=== PATIENT | female | born 1940 | race Caucasian/White ===

== ENCOUNTER 2018-07-29 09:14 | Inpatient (IN) ==
[2018-07-29 11:12] LABS: Basophils # 0.1 10*3/uL (0.0-0.2); Basophils % 0.7 % (0.0-0.8); Eosinophils # 0.1 10*3/uL (0.0-0.87); Hematocrit 45.8 VOL% (35.7-47.0); Hemoglobin 15.7 GM/DL (12.0-16.0); Immature Granulocytes % 0.8 %; Immature Granulocytes Absolute 0.09 #; Lymphocytes # 1.8 10*3/uL (1.4-4.0); Lymphocytes % 15.6 % (21.3-54.2); Mean Corpuscular HGB Conc 34.3 GM/DL (32-36); Mean Corpuscular Hemoglobin 31 PG (27-34); Mean Corpuscular Volume 89.5 FL (87-102); Mean Platelet Volume 10.4 FL (9.6-12.0); Monocytes # 0.8 10*3/uL (0.11-0.8); Monocytes % 6.4 % (1.7-12.7); Neutrophils # 8.8 10*3/uL (1.4-7.4); Neutrophils % 75.5 % (38.7-73.9); Platelet Count 249 T/CUMM (130-400); Red Blood Count 5.12 MC/CUMM (3.8-5.5); Red Cell Distribution Width 12.9 % (9.3-17.3); White Blood Count 11.7 T/CUMM (4-12)
[2018-07-29 11:30] LABS: Lactic Acid 3.3 MMOL/L (0.4-2.0)
[2018-07-29 11:40] LABS: Alanine Aminotransferase 24 U/L (13-56); Albumin 3.9 G/DL (3.4-5.0); Alkaline Phosphatase 143 U/L (45-117); Amylase 39 U/L (25-115); Aspartate Amino Transferase 16 U/L (0-37); Blood Urea Nitrogen 23 MG/DL (7-18); Calcium 9.5 MG/DL (8.5-10.1); Glucose 141 MG/DL (74-106); Osmolality,Calculated 284.4 MOS/KG (273-304); Potassium 3.8 MMOL/L (3.5-5.1); Sodium 140 MMOL/L (136-145); Total Protein 7.5 G/DL (6.4-8.3)
[2018-07-29 11:44] LABS: Bacteria,Urine Occasional /HPF (Few); Bilirubin,Urine Negative (Negative); Blood, Urine Large mg/dL (Negative); Glucose,Urine (UA) Negative (Negative); Ketones,Urine Negative (Negative); Mucus,Urine Few /LPF (Occasional); Nitrite,Urine Positive (Negative); Protein,Urine 100 MG/DL; RBC,Urine 83 /HPF (0-4); Squamous Epithelial Cell,Urine Occasional /HPF (0-10); Urine Specific Gravity 1.023 (1.001-1.035); WBC,Urine 2 /HPF (0-6)
[2018-07-29 11:46] LABS: Apearance,Urine Slightly Hazy (Clear); Urine Color Orange (Yellow)
[2018-07-29 15:04] LABS: Risk Ratio 3.28; VLDL CHOLESTEROL 42.2 MG/DL
[2018-07-29 15:43] LABS: Troponin I < 0.015 NG/ML (0.00-0.045)
[2018-07-30 05:00] LABS: Basophils % 0.2 % (0.0-0.8); Eosinophils # 0.1 10*3/uL (0.0-0.87); Eosinophils % 0.4 % (0.00-10.9); Hematocrit 35.3 VOL% (35.7-47.0); Immature Granulocytes % 0.5 %; Immature Granulocytes Absolute 0.06 #; Lymphocytes # 1.6 10*3/uL (1.4-4.0); Lymphocytes % 13.1 % (21.3-54.2); Mean Corpuscular HGB Conc 33.4 GM/DL (32-36); Mean Corpuscular Hemoglobin 30 PG (27-34); Mean Corpuscular Volume 88.5 FL (87-102); Mean Platelet Volume 10.7 FL (9.6-12.0); Neutrophils # 9.4 10*3/uL (1.4-7.4); Neutrophils % 77.8 % (38.7-73.9); Red Cell Distribution Width 13.1 % (9.3-17.3); White Blood Count 12.1 T/CUMM (4-12)
[2018-07-30 05:27] LABS: Hemoglobin 11.8 GM/DL (12.0-16.0); Red Blood Count 3.99 MC/CUMM (3.8-5.5)
[2018-07-30 05:28] LABS: Platelet Count 193 T/CUMM (130-400)
[2018-07-30 05:32] LABS: Albumin 2.8 G/DL (3.4-5.0); Bilirubin,Total 0.8 MG/DL (0.2-1.0); Osmolality,Calculated 289.6 MOS/KG (273-304); Total Protein 5.3 G/DL (6.4-8.3)
[2018-07-31 05:57] LABS: Basophils # 0.1 10*3/uL (0.0-0.2); Basophils % 0.7 % (0.0-0.8); Eosinophils # 0.2 10*3/uL (0.0-0.87); Eosinophils % 2.7 % (0.00-10.9); Hemoglobin 11.6 GM/DL (12.0-16.0); Immature Granulocytes % 0.5 %; Immature Granulocytes Absolute 0.04 #; Lymphocytes % 24.4 % (21.3-54.2); Mean Corpuscular HGB Conc 33.1 GM/DL (32-36); Mean Corpuscular Hemoglobin 30 PG (27-34); Mean Corpuscular Volume 90.4 FL (87-102); Mean Platelet Volume 10.9 FL (9.6-12.0); Monocytes # 0.6 10*3/uL (0.11-0.8); Monocytes % 7.3 % (1.7-12.7); Neutrophils # 5.3 10*3/uL (1.4-7.4); Neutrophils % 64.4 % (38.7-73.9); Platelet Count 162 T/CUMM (130-400); Red Blood Count 3.87 MC/CUMM (3.8-5.5); Red Cell Distribution Width 13.2 % (9.3-17.3); White Blood Count 8.2 T/CUMM (4-12)
[2018-07-31 06:54] LABS: Albumin 2.6 G/DL (3.4-5.0); Bilirubin,Total 0.5 MG/DL (0.2-1.0); Osmolality,Calculated 290.4 MOS/KG (273-304); Potassium 3.5 MMOL/L (3.5-5.1); Total Protein 5.4 G/DL (6.4-8.3)
[2018-07-31 16:37] VITALS: BP 117/64
== END 2018-07-31 18:17 | disposition home or self-care (01) | DRG 392 ==
LOC: N.ED 09:14 → N.EDINP 14:10 → SUATTDRO 14:10 → N.3E 16:24
PROVIDERS: ADMIT Internal Medicine; ATTEND Internal Medicine

== ENCOUNTER 2020-06-28 11:29 | Inpatient (IN) ==
[2020-06-28] MEDS ORDERED: SODIUM CHLORIDE 0.9% 1,000 ML IV STA (12:34)
[2020-06-28] MEDS ORDERED: ONDANSETRON 4 MG/2 ML VIAL ONE (13:10)
[2020-06-28 13:34] LABS: Basophils % 0.4 % (0.0-0.8); Hematocrit 41.7 VOL% (35.7-47.0); Hemoglobin 14.4 GM/DL (12.0-16.0); Immature Granulocytes % 0.4 %; Immature Granulocytes Absolute 0.02 #; Lymphocytes # 0.7 10*3/uL (1.4-4.0); Lymphocytes % 12.9 % (21.3-54.2); Mean Corpuscular HGB Conc 34.5 GM/DL (32-36); Mean Corpuscular Volume 86.2 FL (87-102); Mean Platelet Volume 10.3 FL (9.6-12.0); Monocytes % 11.2 % (1.7-12.7); Neutrophils % 75.1 % (38.7-73.9); Platelet Count 141 T/CUMM (130-400); Red Blood Count 4.84 MC/CUMM (3.8-5.5); Red Cell Distribution Width 12.6 % (9.3-17.3); White Blood Count 5.3 T/CUMM (4-12)
[2020-06-28 13:46] LABS: PT Patient Result 10.9 SECS (9.8-11.9)
[2020-06-28 13:56] LABS: Albumin 3.4 G/DL (3.4-5.0); Bilirubin,Total 0.5 MG/DL (0.2-1.0); Calcium 8.4 MG/DL (8.5-10.1); Ferritin 349.4 ng/ml (8-252); Osmolality,Calculated 278.5 MOS/KG (273-304); Total Protein 7.1 G/DL (6.4-8.3)
[2020-06-28] MEDS ORDERED: GLUCAGON 1 MG VIAL IM PRN (17:08)
[2020-06-28] MEDS ORDERED: DEXTROSE 50% 25 GM/50 ML VIAL IV PRN (17:08)
[2020-06-29] MEDS: ENOXAPARIN 40 MG/0.4 ML SYRINGE SUBCUT SCH ×2 (00:08→19:30)
[2020-06-29 04:27] LABS: Basophils % 0.4 % (0.0-0.8); Hematocrit 35.4 VOL% (35.7-47.0); Hemoglobin 12.1 GM/DL (12.0-16.0); Immature Granulocytes % 0.2 %; Immature Granulocytes Absolute 0.01 #; Lymphocytes # 0.7 10*3/uL (1.4-4.0); Lymphocytes % 14.1 % (21.3-54.2); Mean Corpuscular HGB Conc 34.2 GM/DL (32-36); Mean Corpuscular Volume 85.7 FL (87-102); Mean Platelet Volume 10.3 FL (9.6-12.0); Neutrophils % 74.3 % (38.7-73.9); Platelet Count 133 T/CUMM (130-400); Red Blood Count 4.13 MC/CUMM (3.8-5.5); Red Cell Distribution Width 12.6 % (9.3-17.3); White Blood Count 4.7 T/CUMM (4-12)
[2020-06-29 04:38] LABS: Osmolality,Calculated 278.4 MOS/KG (273-304)
[2020-06-29 05:09] LABS: Hypochromasia 1+; Microcytosis 1+
[2020-06-29 05:10] LABS: Platelet Estimate Adequate
[2020-06-29] MEDS: ACETAMINOPHEN 500 MG TABLET PO PRN (05:32)
[2020-06-29] MEDS ORDERED: MAGNESIUM SULF RIDER 4 GM in PREMIX 1 EACH IV PRN (07:38)
[2020-06-29] MEDS ORDERED: MAGNESIUM SULF RIDER 2 GM in PREMIX 1 EACH IV PRN (07:38)
[2020-06-29] MEDS: PANTOPRAZOLE 40 MG TABLET PO SCH (09:32)
[2020-06-29] MEDS: ASPIRIN 325 MG TABLET PO SCH (09:32)
[2020-06-29] MEDS: SPIRONOLACTONE 25 MG TABLET PO SCH (09:45)
[2020-06-29] MEDS: ROSUVASTATIN 10 MG TABLET PO SCH (22:48)
[2020-06-29] MEDS: LATANOPROST 0.005% OPH SOLN 2.5 ML BOTTLE BOTH EYES SCH (22:48)
[2020-06-30 04:13] LABS: Basophils % 0.2 % (0.0-0.8); Hematocrit 35.7 VOL% (35.7-47.0); Hemoglobin 12.3 GM/DL (12.0-16.0); Immature Granulocytes % 0.4 %; Immature Granulocytes Absolute 0.02 #; Lymphocytes # 0.5 10*3/uL (1.4-4.0); Lymphocytes % 11.2 % (21.3-54.2); Mean Corpuscular HGB Conc 34.5 GM/DL (32-36); Mean Platelet Volume 10.6 FL (9.6-12.0); Neutrophils % 80.2 % (38.7-73.9); Platelet Count 147 T/CUMM (130-400); Red Cell Distribution Width 12.4 % (9.3-17.3); White Blood Count 4.8 T/CUMM (4-12)
[2020-06-30 04:15] LABS: Calcium 7.9 MG/DL (8.5-10.1); Osmolality,Calculated 276.5 MOS/KG (273-304)
[2020-06-30] MEDS ORDERED: POTASSIUM CHLORIDE RIDER 100 ML IV ONE ×5 (08:05→14:50)
[2020-06-30] MEDS: POTASSIUM CHLORIDE RIDER 10 MEQ in PREMIX 1 EACH IV PRN ×5 (08:20→14:54)
[2020-06-30] MEDS ORDERED: ASPIRIN 325 MG TABLET ONE (09:28)
[2020-06-30] MEDS ORDERED: PANTOPRAZOLE 40 MG TABLET PO ONE (09:28)
[2020-06-30] MEDS: ASPIRIN 325 MG TABLET PO SCH (09:32)
[2020-06-30] MEDS: PANTOPRAZOLE 40 MG TABLET PO SCH (09:32)
[2020-06-30] MEDS ORDERED: REMDESIVIR 200 MG in SODIUM CHLORIDE 0.9% 210 ML IV ONE (17:00)
[2020-06-30] MEDS ORDERED: ENOXAPARIN 40 MG/0.4 ML SYRINGE ONE (17:28)
[2020-06-30] MEDS: ENOXAPARIN 40 MG/0.4 ML SYRINGE SUBCUT SCH (17:35)
[2020-06-30] MEDS: LATANOPROST 0.005% OPH SOLN 2.5 ML BOTTLE BOTH EYES SCH (23:00)
[2020-06-30] MEDS: ROSUVASTATIN 10 MG TABLET PO SCH (23:00)
[2020-06-30] MEDS: ACETAMINOPHEN 500 MG TABLET PO PRN (23:01)
[2020-07-01] MEDS: ONDANSETRON 4 MG/2 ML VIAL IV PRN (01:55)
[2020-07-01 06:46] LABS: Basophils % 0.2 % (0.0-0.8); Hemoglobin 12.7 GM/DL (12.0-16.0); Immature Granulocytes % 0.4 %; Immature Granulocytes Absolute 0.02 #; Lymphocytes # 0.7 10*3/uL (1.4-4.0); Mean Corpuscular HGB Conc 34.3 GM/DL (32-36); Mean Corpuscular Volume 85.5 FL (87-102); Mean Platelet Volume 10.7 FL (9.6-12.0); Monocytes % 8.1 % (1.7-12.7); Neutrophils % 77.3 % (38.7-73.9); Platelet Count 158 T/CUMM (130-400); Red Blood Count 4.33 MC/CUMM (3.8-5.5); Red Cell Distribution Width 12.4 % (9.3-17.3); White Blood Count 5.2 T/CUMM (4-12)
[2020-07-01 06:54] LABS: Calcium 7.9 MG/DL (8.5-10.1); Osmolality,Calculated 274.8 MOS/KG (273-304)
[2020-07-01] MEDS: SPIRONOLACTONE 25 MG TABLET PO SCH (09:54)
[2020-07-01] MEDS: ASPIRIN 325 MG TABLET PO SCH (09:54)
[2020-07-01] MEDS: ACETAMINOPHEN 500 MG TABLET PO PRN (09:54)
[2020-07-01] MEDS: PANTOPRAZOLE 40 MG TABLET PO SCH (09:55)
[2020-07-01] MEDS: ENOXAPARIN 40 MG/0.4 ML SYRINGE SUBCUT SCH (17:52)
[2020-07-01] MEDS: REMDESIVIR 100 MG in SODIUM CHLORIDE 0.9% 230 ML IV SCH (17:54)
[2020-07-01] MEDS: ZALEPLON 5 MG CAPSULE PO PRN (22:21)
[2020-07-01] MEDS: ROSUVASTATIN 10 MG TABLET PO SCH (22:21)
[2020-07-01] MEDS: LATANOPROST 0.005% OPH SOLN 2.5 ML BOTTLE BOTH EYES SCH (22:25)
[2020-07-02] MEDS: ACETAMINOPHEN 500 MG TABLET PO PRN (04:52)
[2020-07-02 06:30] LABS: Basophils % 0.4 % (0.0-0.8); Eosinophils % 0.2 % (0.00-10.9); Hematocrit 36.7 VOL% (35.7-47.0); Hemoglobin 13.2 GM/DL (12.0-16.0); Immature Granulocytes % 0.5 %; Immature Granulocytes Absolute 0.03 #; Lymphocytes # 0.6 10*3/uL (1.4-4.0); Lymphocytes % 10.8 % (21.3-54.2); Mean Corpuscular Volume 82.8 FL (87-102); Mean Platelet Volume 10.5 FL (9.6-12.0); Monocytes % 8.8 % (1.7-12.7); Neutrophils % 79.3 % (38.7-73.9); Platelet Count 177 T/CUMM (130-400); Red Blood Count 4.43 MC/CUMM (3.8-5.5); Red Cell Distribution Width 12.6 % (9.3-17.3); White Blood Count 5.5 T/CUMM (4-12)
[2020-07-02 06:56] LABS: Calcium 7.9 MG/DL (8.5-10.1); Osmolality,Calculated 275.8 MOS/KG (273-304)
[2020-07-02] MEDS: POTASSIUM CHLORIDE RIDER 10 MEQ in PREMIX 1 EACH IV PRN ×4 (07:50→18:32)
[2020-07-02] MEDS: PANTOPRAZOLE 40 MG TABLET PO SCH (08:45)
[2020-07-02] MEDS: ASPIRIN 325 MG TABLET PO SCH (08:45)
[2020-07-02] MEDS: ENOXAPARIN 40 MG/0.4 ML SYRINGE SUBCUT SCH (16:51)
[2020-07-02] MEDS: ROSUVASTATIN 10 MG TABLET PO SCH (20:25)
[2020-07-02] MEDS: REMDESIVIR 100 MG in SODIUM CHLORIDE 0.9% 230 ML IV SCH (20:25)
[2020-07-02] MEDS: LATANOPROST 0.005% OPH SOLN 2.5 ML BOTTLE BOTH EYES SCH (20:25)
[2020-07-02] MEDS: ZALEPLON 5 MG CAPSULE PO PRN (20:25)
[2020-07-03] MEDS: ACETAMINOPHEN 500 MG TABLET PO PRN (05:57)
[2020-07-03 06:54] LABS: Basophils % 0.4 % (0.0-0.8); Eosinophils % 0.4 % (0.00-10.9); Hematocrit 33.6 VOL% (35.7-47.0); Hemoglobin 11.5 GM/DL (12.0-16.0); Immature Granulocytes % 0.7 %; Immature Granulocytes Absolute 0.03 #; Lymphocytes # 0.6 10*3/uL (1.4-4.0); Lymphocytes % 13.8 % (21.3-54.2); Mean Corpuscular HGB Conc 34.2 GM/DL (32-36); Mean Corpuscular Volume 85.3 FL (87-102); Neutrophils % 75.7 % (38.7-73.9); Platelet Count 174 T/CUMM (130-400); Red Blood Count 3.94 MC/CUMM (3.8-5.5); Red Cell Distribution Width 12.4 % (9.3-17.3); White Blood Count 4.6 T/CUMM (4-12)
[2020-07-03 07:08] LABS: Calcium 7.9 MG/DL (8.5-10.1); Osmolality,Calculated 279.4 MOS/KG (273-304)
[2020-07-03] MEDS: SPIRONOLACTONE 25 MG TABLET PO SCH (08:57)
[2020-07-03] MEDS: PANTOPRAZOLE 40 MG TABLET PO SCH (08:57)
[2020-07-03] MEDS: ASPIRIN 325 MG TABLET PO SCH (08:57)
[2020-07-03] MEDS ORDERED: POTASSIUM CHLORIDE 20 MEQ TABLET PO PRN (16:24)
[2020-07-03] MEDS: DEXAMETHASONE 4 MG/1 ML VIAL IV SCH (16:58)
[2020-07-03] MEDS: ONDANSETRON 4 MG/2 ML VIAL IV PRN (16:58)
[2020-07-03] MEDS: REMDESIVIR 100 MG in SODIUM CHLORIDE 0.9% 230 ML IV SCH (17:36)
[2020-07-03] MEDS: ENOXAPARIN 40 MG/0.4 ML SYRINGE SUBCUT SCH (17:36)
[2020-07-03] MEDS: LATANOPROST 0.005% OPH SOLN 2.5 ML BOTTLE BOTH EYES SCH (20:41)
[2020-07-03] MEDS: ROSUVASTATIN 10 MG TABLET PO SCH (20:41)
[2020-07-03] MEDS: ZALEPLON 5 MG CAPSULE PO PRN (20:41)
[2020-07-04 07:00] LABS: Basophils % 0.3 % (0.0-0.8); Hematocrit 37.4 VOL% (35.7-47.0); Hemoglobin 12.9 GM/DL (12.0-16.0); Immature Granulocytes % 1.2 %; Immature Granulocytes Absolute 0.04 #; Lymphocytes # 0.4 10*3/uL (1.4-4.0); Lymphocytes % 11.2 % (21.3-54.2); Mean Corpuscular HGB Conc 34.5 GM/DL (32-36); Mean Corpuscular Volume 85.4 FL (87-102); Mean Platelet Volume 9.9 FL (9.6-12.0); Monocytes % 3.2 % (1.7-12.7); Neutrophils % 84.1 % (38.7-73.9); Platelet Count 213 T/CUMM (130-400); Red Blood Count 4.38 MC/CUMM (3.8-5.5); Red Cell Distribution Width 12.5 % (9.3-17.3); White Blood Count 3.4 T/CUMM (4-12)
[2020-07-04 07:24] LABS: Calcium 8.5 MG/DL (8.5-10.1); Osmolality,Calculated 283.4 MOS/KG (273-304)
[2020-07-04 07:31] LABS: Band Neutrophils 2 % (0-10); Hypochromasia 1+; Lymphocytes 10 % (20-55); Ovalocytes Slight; Platelet Estimate Adequate; Segmented Neutrophils 87 % (50-85); Total Cells Counted 100
[2020-07-04] MEDS: PANTOPRAZOLE 40 MG TABLET PO SCH (08:57)
[2020-07-04] MEDS: ASPIRIN 325 MG TABLET PO SCH (08:57)
[2020-07-04] MEDS: DEXAMETHASONE 4 MG/1 ML VIAL IV SCH (08:58)
[2020-07-04] MEDS: ACETAMINOPHEN 500 MG TABLET PO PRN (15:24)
[2020-07-04] MEDS: ALPRAZolam 0.5 MG TABLET PO PRN (15:26)
[2020-07-04] MEDS: ENOXAPARIN 40 MG/0.4 ML SYRINGE SUBCUT SCH (17:20)
[2020-07-04] MEDS: REMDESIVIR 100 MG in SODIUM CHLORIDE 0.9% 230 ML IV SCH (17:21)
[2020-07-04] MEDS: ONDANSETRON 4 MG/2 ML VIAL IV PRN (17:21)
[2020-07-04] MEDS: ZALEPLON 5 MG CAPSULE PO PRN (21:07)
[2020-07-04] MEDS: ROSUVASTATIN 10 MG TABLET PO SCH (21:07)
[2020-07-04] MEDS: LATANOPROST 0.005% OPH SOLN 2.5 ML BOTTLE BOTH EYES SCH (21:08)
[2020-07-05 05:07] LABS: Basophils % 0.1 % (0.0-0.8); Hematocrit 39.8 VOL% (35.7-47.0); Hemoglobin 13.5 GM/DL (12.0-16.0); Immature Granulocytes % 1.4 %; Immature Granulocytes Absolute 0.18 #; Lymphocytes # 0.8 10*3/uL (1.4-4.0); Lymphocytes % 6.2 % (21.3-54.2); Mean Corpuscular HGB Conc 33.9 GM/DL (32-36); Mean Corpuscular Volume 86.3 FL (87-102); Monocytes % 3.7 % (1.7-12.7); Neutrophils % 88.6 % (38.7-73.9); Platelet Count 290 T/CUMM (130-400); Red Blood Count 4.61 MC/CUMM (3.8-5.5); Red Cell Distribution Width 12.7 % (9.3-17.3); White Blood Count 12.5 T/CUMM (4-12)
[2020-07-05 05:24] LABS: Calcium 8.8 MG/DL (8.5-10.1)
[2020-07-05] MEDS: SPIRONOLACTONE 25 MG TABLET PO SCH (09:05)
[2020-07-05] MEDS: PANTOPRAZOLE 40 MG TABLET PO SCH (09:08)
[2020-07-05] MEDS: ASPIRIN 325 MG TABLET PO SCH (09:08)
[2020-07-05] MEDS: DEXAMETHASONE 4 MG/1 ML VIAL IV SCH (12:39)
[2020-07-05] MEDS: REMDESIVIR 100 MG in SODIUM CHLORIDE 0.9% 230 ML IV SCH (17:13)
[2020-07-05] MEDS: ENOXAPARIN 40 MG/0.4 ML SYRINGE SUBCUT SCH (17:13)
[2020-07-05] MEDS: LATANOPROST 0.005% OPH SOLN 2.5 ML BOTTLE BOTH EYES SCH (20:38)
[2020-07-05] MEDS: ROSUVASTATIN 10 MG TABLET PO SCH (20:38)
[2020-07-05] MEDS: ALPRAZolam 0.5 MG TABLET PO PRN (20:39)
[2020-07-06] MEDS: DEXAMETHASONE 4 MG/1 ML VIAL IV SCH (08:55)
[2020-07-06] MEDS: ASPIRIN 325 MG TABLET PO SCH (08:56)
[2020-07-06] MEDS: ACETAMINOPHEN 500 MG TABLET PO PRN (08:56)
[2020-07-06] MEDS: PANTOPRAZOLE 40 MG TABLET PO SCH (08:57)
[2020-07-06] MEDS: REMDESIVIR 100 MG in SODIUM CHLORIDE 0.9% 230 ML IV SCH (16:44)
[2020-07-06] MEDS: ENOXAPARIN 40 MG/0.4 ML SYRINGE SUBCUT SCH (16:44)
[2020-07-06] MEDS: LATANOPROST 0.005% OPH SOLN 2.5 ML BOTTLE BOTH EYES SCH (21:09)
[2020-07-06] MEDS: ROSUVASTATIN 10 MG TABLET PO SCH (21:09)
[2020-07-06] MEDS: ALPRAZolam 0.5 MG TABLET PO PRN (21:09)
[2020-07-07 04:11] LABS: Basophils % 0.3 % (0.0-0.8); Hematocrit 36.5 VOL% (35.7-47.0); Hemoglobin 12.5 GM/DL (12.0-16.0); Immature Granulocytes % 5.1 %; Immature Granulocytes Absolute 0.75 #; Lymphocytes # 0.9 10*3/uL (1.4-4.0); Lymphocytes % 6.1 % (21.3-54.2); Mean Corpuscular HGB Conc 34.2 GM/DL (32-36); Mean Corpuscular Volume 85.9 FL (87-102); Monocytes % 6.1 % (1.7-12.7); Neutrophils % 82.4 % (38.7-73.9); Platelet Count 299 T/CUMM (130-400); Red Blood Count 4.25 MC/CUMM (3.8-5.5); Red Cell Distribution Width 12.8 % (9.3-17.3); White Blood Count 14.7 T/CUMM (4-12)
[2020-07-07 04:39] LABS: Calcium 7.9 MG/DL (8.5-10.1); Osmolality,Calculated 295.8 MOS/KG (273-304)
[2020-07-07 04:58] LABS: Lymphocytes 6 % (20-55); Segmented Neutrophils 92 % (50-85); Total Cells Counted 100
[2020-07-07 04:59] LABS: Hypochromasia 1+; Microcytosis 1+; Platelet Estimate Adequate
[2020-07-07 06:36] LABS: ABG Base Excess 1.9 MMOL/L (-2.5-2.5); ABG Oxygen Saturation 93.5 % (95-100); ABG PCO2 33.8 MM HG (35-48); ABG PH 7.475 (7.35-7.45); ABG PO2 61.8 MM HG (80-95); ABG TCO2 21.7 MMOL/L (23-27); Allen Test Positive
[2020-07-07] MEDS: SPIRONOLACTONE 25 MG TABLET PO SCH (10:03)
[2020-07-07] MEDS: ENOXAPARIN 40 MG/0.4 ML SYRINGE SUBCUT SCH ×2 (10:04→20:16)
[2020-07-07] MEDS: ASPIRIN 325 MG TABLET PO SCH (10:04)
[2020-07-07] MEDS: DEXAMETHASONE 4 MG/1 ML VIAL IV SCH (10:04)
[2020-07-07] MEDS: LACTOBACILLUS RHAMNOSUS GG CAPSULE PO SCH ×2 (10:04→20:15)
[2020-07-07] MEDS: PANTOPRAZOLE 40 MG TABLET PO SCH (10:04)
[2020-07-07] MEDS: ROSUVASTATIN 10 MG TABLET PO SCH (20:14)
[2020-07-07] MEDS: ALPRAZolam 0.5 MG TABLET PO PRN (20:15)
[2020-07-07] MEDS: LATANOPROST 0.005% OPH SOLN 2.5 ML BOTTLE BOTH EYES SCH (20:20)
[2020-07-07] MEDS ORDERED: SODIUM CHLORIDE 0.9% 1,000 ML IV SCH (21:30)
[2020-07-08 05:53] LABS: Ferritin 810.8 ng/ml (8-252); VLDL CHOLESTEROL 17.8 MG/DL
[2020-07-08] MEDS: PANTOPRAZOLE 40 MG TABLET PO SCH (08:25)
[2020-07-08] MEDS: ASPIRIN 325 MG TABLET PO SCH (08:25)
[2020-07-08] MEDS: LACTOBACILLUS RHAMNOSUS GG CAPSULE PO SCH ×2 (08:25→20:01)
[2020-07-08] MEDS: DEXAMETHASONE 4 MG/1 ML VIAL IV SCH (08:26)
[2020-07-08] MEDS: ENOXAPARIN 40 MG/0.4 ML SYRINGE SUBCUT SCH ×2 (08:27→20:02)
[2020-07-08] MEDS ORDERED: LORazepam 0.5 MG TABLET PO PRN (11:19)
[2020-07-08] MEDS: ALBUTEROL INHALER 18 GM INH SCH ×2 (13:44→18:40)
[2020-07-08] MEDS: ROSUVASTATIN 10 MG TABLET PO SCH (20:01)
[2020-07-08] MEDS: LATANOPROST 0.005% OPH SOLN 2.5 ML BOTTLE BOTH EYES SCH (20:02)
[2020-07-09] MEDS: ALBUTEROL INHALER 18 GM INH SCH ×4 (01:16→20:26)
[2020-07-09 05:53] LABS: Ferritin 693.7 ng/ml (8-252)
[2020-07-09] MEDS: ASPIRIN 325 MG TABLET PO SCH (09:36)
[2020-07-09] MEDS: LACTOBACILLUS RHAMNOSUS GG CAPSULE PO SCH ×2 (09:36→20:14)
[2020-07-09] MEDS: DEXAMETHASONE 4 MG/1 ML VIAL IV SCH (09:36)
[2020-07-09] MEDS: PANTOPRAZOLE 40 MG TABLET PO SCH (09:36)
[2020-07-09] MEDS: SPIRONOLACTONE 25 MG TABLET PO SCH (09:36)
[2020-07-09] MEDS: ENOXAPARIN 40 MG/0.4 ML SYRINGE SUBCUT SCH (09:36)
[2020-07-09] MEDS: ROSUVASTATIN 10 MG TABLET PO SCH (20:14)
[2020-07-09] MEDS: LATANOPROST 0.005% OPH SOLN 2.5 ML BOTTLE BOTH EYES SCH (20:25)
[2020-07-09] MEDS: ALPRAZolam 0.5 MG TABLET PO PRN (20:29)
[2020-07-10] MEDS: ALBUTEROL INHALER 18 GM INH SCH ×4 (00:14→18:39)
[2020-07-10 00:15] LABS: Specimen Source THROAT
[2020-07-10 04:55] LABS: Basophils # 0.1 10*3/uL (0.0-0.2); Basophils % 0.4 % (0.0-0.8); Hematocrit 31.9 VOL% (35.7-47.0); Hemoglobin 11.1 GM/DL (12.0-16.0); Immature Granulocytes % 8.9 %; Immature Granulocytes Absolute 1.23 #; Lymphocytes # 0.8 10*3/uL (1.4-4.0); Lymphocytes % 5.6 % (21.3-54.2); Mean Corpuscular HGB Conc 34.8 GM/DL (32-36); Mean Corpuscular Volume 84.6 FL (87-102); NRBC # 0.02 10*3/uL; Neutrophils % 78.1 % (38.7-73.9); Platelet Count 247 T/CUMM (130-400); Red Blood Count 3.77 MC/CUMM (3.8-5.5); Red Cell Distribution Width 13.2 % (9.3-17.3); White Blood Count 13.8 T/CUMM (4-12)
[2020-07-10 04:58] LABS: Calcium 7.3 MG/DL (8.5-10.1); Osmolality,Calculated 293.1 MOS/KG (273-304)
[2020-07-10 05:26] LABS: Band Neutrophils 3 % (0-10); Hypochromasia 1+; Lymphocytes 4 % (20-55); Metamyelocytes 1 %; Microcytosis 1+; Myelocytes 2 %; Segmented Neutrophils 85 % (50-85); Total Cells Counted 100
[2020-07-10 05:27] LABS: Platelet Estimate Normal
[2020-07-10 05:46] LABS: Ferritin 647.7 ng/ml (8-252)
[2020-07-10] MEDS: ASPIRIN 325 MG TABLET PO SCH (09:16)
[2020-07-10] MEDS: LACTOBACILLUS RHAMNOSUS GG CAPSULE PO SCH ×2 (09:16→20:42)
[2020-07-10] MEDS: PANTOPRAZOLE 40 MG TABLET PO SCH (09:16)
[2020-07-10] MEDS: DEXAMETHASONE 4 MG/1 ML VIAL IV SCH (09:17)
[2020-07-10] MEDS: ALPRAZolam 0.5 MG TABLET PO PRN (20:42)
[2020-07-10] MEDS: ROSUVASTATIN 10 MG TABLET PO SCH (20:42)
[2020-07-10] MEDS: ACETAMINOPHEN 500 MG TABLET PO PRN (20:43)
[2020-07-10] MEDS: LATANOPROST 0.005% OPH SOLN 2.5 ML BOTTLE BOTH EYES SCH (21:00)
[2020-07-11] MEDS: ALBUTEROL INHALER 18 GM INH SCH ×4 (00:05→21:30)
[2020-07-11 05:48] LABS: Ferritin 626.2 ng/ml (8-252)
[2020-07-11] MEDS: SPIRONOLACTONE 25 MG TABLET PO SCH (08:30)
[2020-07-11] MEDS: PANTOPRAZOLE 40 MG TABLET PO SCH (08:30)
[2020-07-11] MEDS: LACTOBACILLUS RHAMNOSUS GG CAPSULE PO SCH ×2 (08:30→21:30)
[2020-07-11] MEDS: DEXAMETHASONE 4 MG/1 ML VIAL IV SCH (08:30)
[2020-07-11] MEDS: LATANOPROST 0.005% OPH SOLN 2.5 ML BOTTLE BOTH EYES SCH (21:30)
[2020-07-11] MEDS: ALPRAZolam 0.5 MG TABLET PO PRN (21:30)
[2020-07-11] MEDS: ROSUVASTATIN 10 MG TABLET PO SCH (21:30)
[2020-07-11] MEDS ORDERED: SODIUM CHLORIDE 0.9% 500 ML IV ONE (22:26)
[2020-07-12] MEDS: ALBUTEROL INHALER 18 GM INH SCH ×5 (01:02→23:42)
[2020-07-12 06:55] LABS: Ferritin 538.9 ng/ml (8-252)
[2020-07-12] MEDS: PANTOPRAZOLE 40 MG TABLET PO SCH (08:39)
[2020-07-12] MEDS: LACTOBACILLUS RHAMNOSUS GG CAPSULE PO SCH ×2 (08:39→20:46)
[2020-07-12] MEDS: DEXAMETHASONE 4 MG/1 ML VIAL IV SCH (08:39)
[2020-07-12] MEDS: ALPRAZolam 0.5 MG TABLET PO PRN (20:46)
[2020-07-12] MEDS: ROSUVASTATIN 10 MG TABLET PO SCH (20:47)
[2020-07-12] MEDS: LATANOPROST 0.005% OPH SOLN 2.5 ML BOTTLE BOTH EYES SCH (20:47)
[2020-07-13] MEDS: ALBUTEROL INHALER 18 GM INH SCH ×3 (06:01→18:49)
[2020-07-13 06:05] LABS: Ferritin 514.3 ng/ml (8-252)
[2020-07-13] MEDS: LACTOBACILLUS RHAMNOSUS GG CAPSULE PO SCH ×2 (09:08→20:29)
[2020-07-13] MEDS: SPIRONOLACTONE 25 MG TABLET PO SCH (09:08)
[2020-07-13] MEDS: PANTOPRAZOLE 40 MG TABLET PO SCH (09:09)
[2020-07-13] MEDS: DEXAMETHASONE 4 MG/1 ML VIAL IV SCH (09:09)
[2020-07-13 10:43] LABS: Apearance,Urine Slightly Hazy (Clear); Bacteria,Urine Moderate /HPF (Few); Bilirubin,Urine Negative (Negative); Blood, Urine Negative (Negative); Glucose,Urine (UA) 50 mg/dL (Negative); Ketones,Urine Negative (Negative); Mucus,Urine Occasional /LPF (Occasional); Nitrite,Urine Negative (Negative); Protein,Urine Negative; RBC,Urine 5 /HPF (0-4); Squamous Epithelial Cell,Urine Occasional /HPF (0-10); Urine Color Yellow (Yellow); Urine Specific Gravity 1.009 (1.001-1.035); Urine Urobilinogen < 2.0 EU/DL (0.2-1.0); WBC,Urine 30 /HPF (0-6)
[2020-07-13 10:49] LABS: ABG Base Excess -0.1 MMOL/L (-2.5-2.5); ABG HCO3 24.3 MMOL/L (20-26); ABG Oxygen Saturation 97.8 % (95-100); ABG PCO2 32.1 MM HG (35-48); ABG PH 7.463 (7.35-7.45); ABG PO2 93.6 MM HG (80-95); ABG TCO2 20.4 MMOL/L (23-27)
[2020-07-13 11:04] LABS: Basophils # 0.1 10*3/uL (0.0-0.2); Basophils % 0.3 % (0.0-0.8); Hematocrit 34.2 VOL% (35.7-47.0); Hemoglobin 11.3 GM/DL (12.0-16.0); Immature Granulocytes % 5.9 %; Immature Granulocytes Absolute 1.05 #; Lymphocytes # 0.8 10*3/uL (1.4-4.0); Lymphocytes % 4.6 % (21.3-54.2); Mean Corpuscular Volume 91.2 FL (87-102); Mean Platelet Volume 10.4 FL (9.6-12.0); Monocytes % 5.7 % (1.7-12.7); NRBC # 0.02 10*3/uL; Neutrophils % 83.5 % (38.7-73.9); Platelet Count 175 T/CUMM (130-400); Red Blood Count 3.75 MC/CUMM (3.8-5.5); White Blood Count 17.9 T/CUMM (4-12)
[2020-07-13 11:31] LABS: Anisocytosis 1+; Band Neutrophils 1 % (0-10); Lymphocytes 8 % (20-55); Macrocytosis Slight; Metamyelocytes 1 %; Myelocytes 2 %; Platelet Estimate Normal; Segmented Neutrophils 80 % (50-85); Smudge Cells Few; Stomatocytes Few; Total Cells Counted 100
[2020-07-13 12:23] LABS: Albumin 2.4 G/DL (3.4-5.0); Bilirubin,Total 0.5 MG/DL (0.2-1.0); Calcium 7.2 MG/DL (8.5-10.1); Total Protein 4.9 G/DL (6.4-8.3)
[2020-07-13] MEDS ORDERED: cefTRIAXone 1,000 MG in SYRINGE 1 EACH IV SCH (15:00)
[2020-07-13] MEDS: SODIUM CHLORIDE 0.9% 1,000 ML IV SCH (15:41)
[2020-07-13] MEDS: ROSUVASTATIN 10 MG TABLET PO SCH (20:29)
[2020-07-13] MEDS: LATANOPROST 0.005% OPH SOLN 2.5 ML BOTTLE BOTH EYES SCH (23:48)
[2020-07-14] MEDS: ALBUTEROL INHALER 18 GM INH SCH ×2 (01:04→06:09)
[2020-07-14] MEDS: SODIUM CHLORIDE 0.9% 1,000 ML IV SCH (04:02)
[2020-07-14 05:55] LABS: Basophils % 0.2 % (0.0-0.8); Hematocrit 31.4 VOL% (35.7-47.0); Hemoglobin 10.5 GM/DL (12.0-16.0); Immature Granulocytes % 5.3 %; Immature Granulocytes Absolute 0.84 #; Lymphocytes # 0.7 10*3/uL (1.4-4.0); Lymphocytes % 4.7 % (21.3-54.2); Mean Corpuscular HGB Conc 33.4 GM/DL (32-36); Mean Corpuscular Volume 89.2 FL (87-102); Mean Platelet Volume 10.5 FL (9.6-12.0); Monocytes % 5.9 % (1.7-12.7); Neutrophils % 83.9 % (38.7-73.9); Platelet Count 164 T/CUMM (130-400); Red Blood Count 3.52 MC/CUMM (3.8-5.5); Red Cell Distribution Width 13.9 % (9.3-17.3); White Blood Count 15.9 T/CUMM (4-12)
[2020-07-14 06:18] LABS: Albumin 2.3 G/DL (3.4-5.0); Bilirubin,Total 0.5 MG/DL (0.2-1.0); Calcium 7.6 MG/DL (8.5-10.1); Osmolality,Calculated 289.3 MOS/KG (273-304)
[2020-07-14 06:19] LABS: Band Neutrophils 2 % (0-10); Hypochromasia 1+; Lymphocytes 3 % (20-55); Segmented Neutrophils 92 % (50-85); Total Cells Counted 100
[2020-07-14 06:20] LABS: Microcytosis 1+; Platelet Estimate Adequate
[2020-07-14 06:54] LABS: Ferritin 476.9 ng/ml (8-252)
[2020-07-14 08:18] VITALS: BP 139/80
[2020-07-14] MEDS: LACTOBACILLUS RHAMNOSUS GG CAPSULE PO SCH (09:24)
[2020-07-14] MEDS: PANTOPRAZOLE 40 MG TABLET PO SCH (09:24)
== END 2020-07-14 10:54 | DRG 177 ==
LOC: EDUNIT# → EDBD → N.ED 11:29 → N.EDINP 17:38 → SUATTDRO 17:38 → N.EDINP 07-01 00:10 → N.2E 07-01 00:35
PROVIDERS: ADMIT Internal Medicine; ATTEND Internal Medicine